=== PATIENT | male | born 1995 ===

== ENCOUNTER 2017-11-20 02:55 | Emergency (ER) | payer SELFPAY ==
[2017-11-20 03:17] VITALS: O2SAT 100
[2017-11-20] MEDS ORDERED: Sodium Chloride 0.9% 1,000 ML IV STA (03:20)
--- NOTE | 2017-11-20 03:35 | ED PDOC ---
HPI: Psych/Substance Abuse Time Seen by Provider: 11/20/17 03:06 Chief Complaint (Nursing): Psychiatric Evaluation Chief Complaint (Provider): Intoication, Crisis Eval ED Caveat: Intoxicated History Per: Other ([employer]) History/Exam Limitations: intoxication Onset/Duration Of Symptoms: Mins (prior to arrival) Current Symptoms Are (Timing): Still Present Additional Complaint(s): 21 year old male is brought into the ED by [facility] for intoxication and a crisis evaluation. 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 He also asked the police to kill him. Patient is a poor historian due to his intoxication, limiting history. PMD: cannot recall Past Medical History Reviewed: Historical Data, Nursing Documentation, Vital Signs Vital Signs: Last Vital Signs Temp 98.0 F 11/20/17 03:04 Pulse 103 H 11/20/17 03:04 Resp 17 11/20/17 03:04 BP 135/72 11/20/17 03:04 Pulse Ox 100 11/20/17 03:04 - Medical History PMH: No Chronic Diseases - Surgical History Other surgeries: thumb surgery - Family History Family History: States: Unknown Family Hx - Living Arrangements Living Arrangements: Other ([facility]) - Social History Current smoker - smoking cessation education provided: No Alcohol: Social Drugs: Denies - Allergies Allergies/Adverse Reactions: Allergies Allergy/AdvReac Type Severity Reaction Status Date / Time No Known Allergies Allergy Verified 11/20/17 03:17 Review of Systems Review Of Systems: ROS cannot be obtained secondary to pt's inabilty to answer questions. Physical Exam - Reviewed Nursing Documentation Reviewed: Yes Vital Signs Reviewed: Yes - Physical Exam Appears: Positive for: No Acute Distress Head Exam: Positive for: ATRAUMATIC, NORMAL INSPECTION, NORMOCEPHALIC Skin: Positive for: Normal Color, Warm, Dry Eye Exam: Positive for: Normal appearance, EOMI, PERRL ENT: Positive for: Normal ENT Inspection Neck: Positive for: Normal, Painless ROM, Supple Cardiovascular/Chest: Positive for: Regular Rate, Rhythm Respiratory: Positive for: Normal Breath Sounds. Negative for: Accessory Muscle Use, Respiratory Distress Gastrointestinal/Abdominal: Positive for: Normal Exam, Soft. Negative for: Tenderness Back: Positive for: Normal Inspection Extremity: Positive for: Normal ROM Neurologic/Psych: Positive for: Alert (and awake), Other (slurred speech with alcohol on breath) - Laboratory Results Result Diagrams: 11/20/17 03:49 11/20/17 03:49 - ECG O2 Sat by Pulse Oximetry: 100 (RA) Pulse Ox Interpretation: Normal Medical Decision Making Medical Decision Making: Time: 319 Initial Impression: 21 year old intoxicated male with possible suicidal ideation Initial Plan: --Acetaminophen --Alcohol serum --CMP --Drug screen --Crisis eval --1:1 observation --Normal saline IV --Accucheck 0700 Patient care endorsed to Dr. Yang pending sobriety and crisis eval. Scribe Attestation: Documented by Kiarra Lewis acting as a scribe for Junior Maria MD. Provider Scribe Attestation: All medical record entries made by the Scribe were at my direction and personally dictated by me. I have reviewed the chart and agree that the record accurately reflects my personal performance of the history, physical exam, medical decision making, and the department course for this patient. I have also personally directed, reviewed, and agree with the discharge instructions and disposition. Disposition - Clinical Impression Clinical Impression: Alcohol intoxication - Patient ED Disposition Is Patient to be Admitted: Transfer of Care - Disposition Referrals: [facility] [Outside] Disposition Time: 07:00 Condition: FAIR Additional Instructions: ADOLFO LARKIN, thank you for letting us take care of you today. Your provider was Jakob Yang MD and you were treated for SUICIDAL IDEATIONS , ETOH. The emergency medical care you received today was directed at your acute symptoms. If you were prescribed any medication, please fill it and take as directed. It may take several days for your symptoms to resolve. Return to the Emergency Department if your symptoms worsen, do not improve, or if you have any other problems. Please contact your doctor or call one of the physicians/clinics you have been referred to that are listed on the Patient Visit Information form that is included in your discharge packet. Bring any paperwork you were given at discharge with you along with any medications you are taking to your follow up visit. Our treatment cannot replace ongoing medical care by a primary care provider outside of the emergency department. Thank you for allowing the [facility] team to be part of your care today. Instructions: Alcohol Abuse and Alcoholism (DC) Forms: [place] (E[place]ian) Patient Signed Over To: Jakob Yang
[2017-11-20 04:01] LABS: BASO % 0.6 % (0.0-2.0); EOS # 0.1 K/uL (0.0-0.7); EOS % 1.4 % (0.0-4.0); HEMOGLOBIN 15.1 g/dL (12.0-18.0); LYMPH # 2.1 K/uL (1.0-4.3); LYMPH % 31.3 % (20.0-40.0); MEAN CELL VOLUME 89.4 fl (80.0-94.0); MEAN CORPUSCULAR HEMOGLOBIN 31.2 pg (27.0-31.0); MEAN CORPUSCULAR HGB CONC 34.8 g/dL (33.0-37.0); MEAN PLATELET VOLUME 8.4 fl (7.2-11.7); MONO # 0.4 K/uL (0.0-0.8); MONO % 6.3 % (0.0-10.0); NEUT % 60.4 % (50.0-75.0); NRBC % 0.1 % (0.0-0.0); RBC 4.84 Mil/uL (4.40-5.90); RED CELL DISTRIBUTION WIDTH 12.6 % (11.5-14.5); WHITE BLOOD COUNT 6.6 K/uL (4.8-10.8)
[2017-11-20 04:11] LABS: ACETAMINOPHEN < 10.0 ug/ml (10.0-30.0); SALICYLATE < 1.0 mg/dl
[2017-11-20 04:13] LABS: ALB/GLOB RATIO 1.4 (1.0-2.1); ALBUMIN 4.7 g/dL (3.5-5.0); ALT/SGPT 48 U/L (21-72); AST/SGOT 45 U/L (17-59); BLOOD UREA NITROGEN 12 mg/dl (9-20); CALCIUM 9.7 mg/dL (8.4-10.2); GFR NON-AFRICAN AMERICAN > 60
[2017-11-20 04:24] LABS: BARBITURATES, UR NEGATIVE (NEGATIVE); BENZODIAZEPINES, UR NEGATIVE (NEGATIVE); OPIATES, UR NEGATIVE (NEGATIVE); PHENCYCLIDINE, UR NEGATIVE (NEGATIVE)
--- NOTE | 2017-11-20 07:09 | ED PDOC ---
- Laboratory Results Result Diagrams: 11/20/17 03:49 11/20/17 03:49 - ECG O2 Sat by Pulse Oximetry: 100 (RA) Pulse Ox Interpretation: Normal - Progress Re-evaluation Time: 11:40 Condition: Re-examined, Improved Medical Decision Making Medical Decision Making: Time: 0700 Patient endorsed to me by Dr. Maria pending sobriety and crisis evaluation. 1140 Patient is cleared by psychiatry service for discharge. Scribe Attestation: Documented by Estephania Sandra, acting as a scribe for Jakob Yang MD. Provider Scribe Attestation: All medical record entries made by the Scribe were at my direction and personally dictated by me. I have reviewed the chart and agree that the record accurately reflects my personal performance of the history, physical exam, medical decision making, and the department course for this patient. I have also personally directed, reviewed, and agree with the discharge instructions and disposition. Disposition Doctor Will See Patient In The: Office Counseled Patient/Family Regarding: Studies Performed, Diagnosis - Clinical Impression Clinical Impression: Alcohol intoxication - POA Present On Arrival: None - Disposition Referrals: [facility] [Outside] Disposition: Routine/Home Disposition Time: 11:40 Condition: FAIR Additional Instructions: ADOLFO LARKIN, thank you for letting us take care of you today. Your provider was Jakob Yang MD and you were treated for SUICIDAL IDEATIONS , ETOH. The emergency medical care you received today was directed at your acute symptoms. If you were prescribed any medication, please fill it and take as directed. It may take several days for your symptoms to resolve. Return to the Emergency Department if your symptoms worsen, do not improve, or if you have any other problems. Please contact your doctor or call one of the physicians/clinics you have been referred to that are listed on the Patient Visit Information form that is included in your discharge packet. Bring any paperwork you were given at discharge with you along with any medications you are taking to your follow up visit. Our treatment cannot replace ongoing medical care by a primary care provider outside of the emergency department. Thank you for allowing the [facility] team to be part of your care today. Instructions: Alcohol Abuse and Alcoholism (DC)
[2017-11-20 16:13] VITALS: BP 115/66; PULSE 90; RESP 18; TEMP 98.2
== END 2017-11-20 12:08 | disposition home or self-care (01) ==
LOC: H.ER 02:55
DX: F10.129 Alcohol abuse with intoxication, unspecified (principal); Z00.8 Encounter for other general examination
CPT/HCPCS: 80053; 82948; 85025; 99283; G0480